=== PATIENT | male | born 1940 | race Two or more races ===

== ENCOUNTER 2018-02-05 08:11 | Emergency (ER) | payer MEDICARE, OTHER ==
[~2018-02-05] VITALS: Ht 167.6 cm; Wt 69.9 kg
[2018-02-05 08:26] VITALS: BP 130/67
== END 2018-02-05 09:16 | disposition home or self-care (01) ==
LOC: ER 08:17
DX: R60.0 Localized edema (principal)
CPT/HCPCS: 73140; 99284; A4606; Z7610